=== PATIENT | female | born 1950 | race Hispanic/Latino ===

== ENCOUNTER → 2022-11-01 | Outpatient (CLI) | payer MEDICARE ==
[~2022-11-01] MED LIST: IOHEXOL 350 MG/ML 100ML INFUS..BTL IV ONE; METOPROLOL TARTRATE 1 MG/ML 5ML VIAL IV ONE
== END | disposition home or self-care (01) ==
LOC: RAH 10:10
PROVIDERS: ATTEND Internal Medicine Cardiovascular Disease
DX: I20.9 Angina pectoris, unspecified (principal); M47.815 Spondylosis without myelopathy or radiculopathy, thoracolumbar region
CPT/HCPCS: 75574; J3490 ×3; Q9967